=== PATIENT | female | born 1970 | race Caucasian/White ===

== ENCOUNTER → 2023-10-11 11:43 | Outpatient (CLI) | payer OTHER, SELFPAY ==
[2023-10-13 13:26] LABS: Dehydroepiandrosterone Sulfate 82.7 ug/dL (41.2-243.7)
[2023-10-18 08:12] LABS: Testosterone Total 5.5 ng/dL (.)
== END ==
PROVIDERS: PCP Nurse Practitioner; Referring Provider Student in an Organized Health Care Education/Training Program; Visit Provider Student in an Organized Health Care Education/Training Program
DX: N95.9 Unspecified menopausal and perimenopausal disorder (principal)
CPT/HCPCS: 36415; 82627; 84270; 84402; 84403